=== PATIENT | female | born 1980 | race Caucasian/White ===

== ENCOUNTER 2021-01-31 08:52 | Emergency (ER) | payer OTHER, SELFPAY ==
[2021-01-31 09:06] VITALS: BP 111/79; PULSE 71; RESP 16; TEMP 36.8; O2SAT 96; BMI 29.1
[2021-01-31 09:22] VITALS: BP 123/78; PULSE 89; RESP 16; O2SAT 97
--- NOTE | 2021-01-31 09:28 | ED_ITS ---
HPI - Female Genitourinary General: Chief complaint: Urogenital-Female Stated complaint: Kindey stone complications Time Seen by Provider: 01/31/21 08:53 History of Present Illness: HPI Narrative: 40-year-old female presents emergency room complaint area left flank pain. She had a for the last 2 days. She is previously had kidney stones and had similar pain. Shortly after arrival here she gave a urine sample and passed the stone in her urine. When I came in to see the patient her symptoms were completely resolved and she was feeling much better. MD elicited complaint: flank pain Onset (ago): day(s) Severity: severe Quality of pain: sharp Consistency: now resolved Vaginal discharge: none Vaginal bleeding: none Urinary symptoms: Flank Pain Exacerbating factors: none Relieving factors: none Associated symptoms: Deny abdominal pain, short of breath, fevers/chills, headache(s), nausea, rash, seizures, syncope, vaginal bleeding, vaginal discharge or weakness Treatment prior to arrival: none Date of Last Menstrual Period: 01/11/21 Review of Systems Const: Denies: fever(s), chills, body aches, change in appetite, fatigue or malaise ENMT: Denies: throat pain, ear or mastoid pain, nasal discharge or nasal congestion Card: Denies: syncope Resp: Denies: dyspnea, productive cough or non-productive cough GI: Denies: abdominal pain or nausea : Denies: vaginal discharge Skin/Breast: Denies: rash or pruritus Neuro: Denies: headache(s) COUNT INCLUDES THE [facility] ED PFSH: Medical History (Updated 01/31/21 @ 11:41 by Hossein Goodwin DO) Nephrolithiasis Female Reproductive History: Date of last menstrual period: 01/11/21 Physical Exam Const: COMMON NORMALS: no acute distress GENERAL APPEARANCE: cooperative and comfortable ORIENTATION/CONSCIOUSNESS: Yes awake, Yes oriented to person, Yes oriented to place and Yes oriented to time HENMT: COMMON NORMALS: normocephalic, atraumatic and hearing grossly normal bilaterally HEAD & SCALP: normocephalic and atraumatic Neck/C-Spine: COMMON NORMALS: no JVD Lymph: LYMPHATIC: no lymphadenopathy noted and no lymphedema noted Resp: COMMON NORMALS: normal respiratory effort, No retractions, No use of accessory muscles and clear to auscultation bilaterally AUSCULTATION: clear to auscultation bilaterally Cardio: COMMON NORMALS: no JVD, regular rate, regular rhythm and No murmurs present (Cardio) RATE: regular rate RHYTHM: regular rhythm GI: COMMON NORMALS: Soft to palpation and No hepatosplenomegaly present AUSCULTATION: Yes normoactive bowel sounds PALPATION: Yes Soft to palpation, No Tenderness to palpation present (GI), No Guarding due to palpation present (GI) and Yes No hepatosplenomegaly present : SPECULUM EXAM - VAGINA: No vaginal bleeding OB/EXTERNAL & SPECULUM: No vaginal bleeding Extremity: COMMON NORMALS: normal to inspection, capillary refill normal, no clubbing, cyanosis or edema, no calf tenderness and no pedal edema Neuro: SENSORIUM/ORIENTATION: Yes oriented to person, Yes oriented to place and Yes oriented to time Skin: COMMON NORMALS: no rashes or lesions noted GENERAL SKIN EXAM: no rashes or lesions noted Course Vital Signs: Vital signs: Vital Signs Temperature 98.3 F 01/31/21 09:06 Pulse Rate 70 01/31/21 10:47 Respiratory Rate 14 01/31/21 10:47 Blood Pressure 107/70 01/31/21 10:47 Pulse Oximetry 99 01/31/21 10:47 MDM - Female MDM Narrative: Medical decision making narrative: Patient is passed stone was sent for analysis no sign of infection renal function CBC is good will discharge home follow-up with urology. Lab Data: Labs: Lab Results 01/31/21 01/31/21 01/31/21 Range/Units 09:15 09:23 09:23 WBC 15.8 H (4.0-10.0) 10^3/ uL RBC 4.16 (4.1-5.3) 10^6/u L Hgb 13.0 (11.5-15.3) g/dL Hct 38.7 (37.0-47.0) % MCV 93.0 (81-99) fl MCH 31.3 (28.0-34.0) pg MCHC 33.6 (30.0-36.0) g/dL RDW 13.2 (12.1-15.1) % Plt Count 391 (130-400) 10^3/c mm MPV 10.8 H (7.4-10.4) fL Neut % (Auto) 91.9 % Lymph % (Auto) 5.9 % Stearns % (Auto) 1.7 % Eos % (Auto) 0.0 % Baso % (Auto) 0.2 % Neut # (Auto) 14.52 H (1.8-7.7) 10^3/u L Lymph # (Auto) 0.9 (0.8-4.8) 10^3/u L Stearns # (Auto) 0.3 (0.2-0.9) 10^3/u L Eos # (Auto) 0.0 (0.0-0.8) 10^3/u L Baso # (Auto) 0.0 (0.0-0.1) 10^3/u L Nucleated RBC % (a uto) 0 % Nucleated RBCs # 0.0 /100WBC Sodium 141 (136-145) mmol/L Potassium 4.1 (3.5-5.1) mmol/L Chloride 107 (98-107) mmol/L Carbon Dioxide 21 L (22-29) mmol/L Anion Gap 17.1 (5-19) BUN 11 (6-20) mg/dL Creatinine 0.7 (0.5-0.9) mg/dL GFR Calculation 93.2 (90-130) mL/min Glucose 123 H (65-115) mg/dL Calculated Osmolal ity 293 (285-295) mOsm/k g Calcium 9.0 (8.5-10.5) mg/dL Urine Color Dark yellow (Yellow) Urine Appearance Clear (CLEAR) Urine pH 7 (5-7) Ur Specific Gravit y 1.015 (1.005-1.030) Urine Protein Neg (Negative) Urine Glucose (UA) Norm (Normal) Urine Ketones 2+ H (Negative) Urine Blood 3+ H (Negative) Urine Nitrate Negative (Negative) Urine Bilirubin Neg (Negative) Urine Urobilinogen 1 H (Negative) mg/dL Ur Leukocyte Sushma ase Negative (Negative) Urine RBC >100 H (0-2) /hpf Urine WBC 10-15 H (0-5) /hpf Ur Squamous Epith Cells 0-4 H (0-5) /hpf Amorphous Sediment Not Reportable Urine Bacteria 1+ H (NONE) /hpf Discharge Plan Discharge Patient Disposition: Home Clinical Impression: Nephrolithiasis Condition: Stable Prescriptions: No Action Zofran 4 mg Tablet 4 mg PO Q6H PRN (Reason: Nausea And Vomiting) RF: 0 Junel FE 07/07 (28) 1 mg-20 mcg (21)/75 mg (7) Tablet 1 tab PO DAILY RF: 0 Tylenol Extra Strength 500 mg Tablet 1,000 mg PO PRN PRN (Reason: Pain) RF: 0 Flomax 0.4 mg Capsule 0.4 mg PO DAILY PRN (Reason: old rx pt had from [place]) RF: 0 Stout 1 tab PO PRN PRN (Reason: old rx pt had from [place] pt states unsure mg) RF: 0 Discharge Orders: Discharge ED (Routine); Ordered 01/31/21 Ordered By: Hossein Goodwin Discharge Diet: Usual diet Discharge Activity: Resume usual activity Activity Restrictions/Additional Instructions: Case management will make arrangements for follow-up with urology. Coding Level of Care Code ED [employer] Service Technician for Roger Fwd Exam Comprehensive
[2021-01-31 09:31] LABS: Basophils % 0.2 %; Hematocrit 38.7 % (37.0-47.0); Lymphocytes # 0.9 10^3/uL (0.8-4.8); Lymphocytes % 5.9 %; Mean Corpuscular HGB Conc 33.6 g/dL (30.0-36.0); Mean Corpuscular Hemoglobin 31.3 pg (28.0-34.0); Mean Platelet Volume 10.8 fL (7.4-10.4); Monocytes # 0.3 10^3/uL (0.2-0.9); Monocytes % 1.7 %; Neutrophils # 14.52 10^3/uL (1.8-7.7); Neutrophils % 91.9 %; Nucleated Red Blood Cells % 0 %; Platelet Count 391 10^3/cmm (130-400); Red Blood Count 4.16 10^6/uL (4.1-5.3); Red Cell Distribution Width 13.2 % (12.1-15.1); White Blood Count 15.8 10^3/uL (4.0-10.0)
--- NOTE | 2021-01-31 09:40 | PC.PHAR ---
pt states she takes care of her own medications-pt states she has been taking flomax,zofran and norco from a old rx she had from [place]-pt states she is unsure of the mg of norco-called [facility] in [place] [phone] and [phone] they both states pt didnt fill the medication there and couldnt do a host lookup
[2021-01-31 09:53] LABS: Anion Gap 17.1 (5-19); Blood Urea Nitrogen 11 mg/dL (6-20); Carbon Dioxide 21 mmol/L (22-29); Chloride 107 mmol/L (98-107); Glomerular Filtration Rate 93.2 mL/min (90-130); Glucose 123 mg/dL (65-115); Osmolality Calculated 293 mOsm/kg (285-295); Potassium 4.1 mmol/L (3.5-5.1); Sodium 141 mmol/L (136-145)
[2021-01-31 09:58] LABS: Urine Appearance Clear (CLEAR); Urine Color Dark Yellow (Yellow)
[2021-01-31 09:59] LABS: Add Urine Culture? Yes; Add Urine Microscopic? YES; Bacteria Urine 1+ /hpf; Bilirubin Urine Neg (Negative); Blood Urine 3+ (Negative); Glucose Urine UA Norm (Normal); Ketones Urine 2+ (Negative); Leukocyte Esterase Urine Negative (Negative); Nitrate Urine Negative (Negative); Protein Urine Neg (Negative); RBC Urine >100 /hpf (0-2); Specific Gravity, Urine 1.015 (1.005-1.030); Squamous Epithelial Cell Urine 0-4 /hpf (0-5); Urobilinogen Urine 1 mg/dL (Negative); pH Urine 7 (5-7)
[2021-01-31 10:47] VITALS: BP 107/70; PULSE 70; RESP 14; O2SAT 99
--- NOTE | 2021-01-31 11:56 | DCPLANNER ---
business excellence manager had message to schedule a follow up appointment for patient with Dr. Valiente. business excellence manager called the office of Dr. Valiente, spoke with Farzana, gave clinic patients information. business excellence manager was told that patients information would be printed and reviewed. Clinic will call patient with appointment information.
--- NOTE | 2021-02-01 14:21 | DCPLANNER ---
Addendum entered by Mary Jane Watts 07/06/21 18:14: Patient had a follow up appointment scheduled with Dr. Valiente - appointment was cancelled. Original Note: Patient has a follow up appointment scheduled for Sunday, March 16, 2021 at 4:[address] Valiente. Clinic will call patient with appointment information.
[2021-02-06 14:12] LABS: Stone Source RENAL STONE
== END 2021-01-31 10:28 | disposition home or self-care (01) ==
PROVIDERS: Emergency Provider Family Medicine
DX: N20.0 Calculus of kidney (principal)
CPT/HCPCS: 80048; 81001; 82365; 85025; 87086; 88300; 99283

== ENCOUNTER 2022-08-28 07:37 | Outpatient (CLI) | payer OTHER, SELFPAY ==
--- NOTE | 2022-08-28 07:49 | MM_ITS ---
WS: [id number] SCREENING DIGITAL BREAST TOMOSYNTHESIS MAMMOGRAM WITH CAD HISTORY: Z12.39 - Encounter for other screening for malignant neop... COMPARISON: None available. Bilateral CC and MLO with tomosynthesis and synthetic mammography submitted. Computer aided detection analyzed. Breast composition: The breasts are heterogeneously dense, which may obscure small masses. Dense part ially obscured asymmetry measuring 2.1 cm seen best along the inferior RIGHT breast on the MLO exam. Possibly a corresponding abnormality noted on the CC projection. LEFT breast is negative. MM/[place] [id number] IMPRESSION: BI-RADS: 0-Incomplete: Need additional imaging evaluation FOLLOW UP: Need Additional Imaging RIGHT breast: Spot compression views (CC and MLO). True ML. Ultrasound to follo w if abnormality persists.
== END 2022-08-28 07:38 | disposition home or self-care (01) ==
LOC: RAD 07:41
PROVIDERS: PCP Family Medicine; Visit Provider Nurse Practitioner Women's Health
DX: Z12.31 Encounter for screening mammogram for malignant neoplasm of breast (principal)
CPT/HCPCS: 77063; 77067

== ENCOUNTER 2022-09-26 09:30 | Outpatient (CLI) | payer OTHER, SELFPAY ==
--- NOTE | 2022-09-26 09:41 | MM_ITS ---
WS: [id number] ADDITIONAL VIEWS RIGHT MAMMOGRAM WITH DIGITAL BREAST TOMOSYNTHESIS. RIGHT BREAST ULTRASOUND HISTORY: abnormal mammogram COMPARISON: 08/28/2022 RIGHT MAMMOGRAM: Spot compression views and true ML with digital breast tomosynthesis and SM. Dense fibroglandular breast tissue. Partially obscured lobulated mass along the inferior mid RIGHT br east measures 2.2 x 1.8 cm. Best seen on the lateral projections. RIGHT BREAST ULTRASOUND 2-D and color Doppler imaging submitted. There is no corresponding ultrasound finding within the RIGHT breast. Ultrasound is performed of the lower half of the breast both medially and laterally. There is very dense fibroglandular tissue. Mild ly prominent dilated ducts. MM/[place] [id number] IMPRESSION: BI-RADS: 3-Probably Benign FOLLOW UP: 6 Month Follow-up 1. Recommend diagnostic mammogram follow-up in 6 months RIGHT breast and possi ble ultrasound. 2. Focal asymmetry seen only on the RIGHT MLO projection. This is not identifi ed in either additional mammographic projections or by ultrasound. Therefore I suspect this is probably superimposed very dense fibroglandular tissue. With no prior studies for comparison recommend 6 month follow-up.
--- NOTE | 2022-09-26 10:15 | US_ITS ---
WS: [id number] ADDITIONAL VIEWS RIGHT MAMMOGRAM WITH DIGITAL BREAST TOMOSYNTHESIS. RIGHT BREAST ULTRASOUND HISTORY: abnormal mammogram COMPARISON: 08/28/2022 RIGHT MAMMOGRAM: Spot compression views and true ML with digital breast tomosynthesis and SM. Dense fibroglandular breast tissue. Partially obscured lobulated mass along the inferior mid RIGHT br east measures 2.2 x 1.8 cm. Best seen on the lateral projections. RIGHT BREAST ULTRASOUND 2-D and color Doppler imaging submitted. There is no corresponding ultrasound finding within the RIGHT breast. Ultrasound is performed of the lower half of the breast both medially and laterally. There is very dense fibroglandular tissue. Mild ly prominent dilated ducts. US/US breast RT limited* [id number] IMPRESSION: BI-RADS: 3-Probably Benign FOLLOW UP: 6 Month Follow-up 1. Recommend diagnostic mammogram follow-up in 6 months RIGHT breast and possi ble ultrasound. 2. Focal asymmetry seen only on the RIGHT MLO projection. This is not identifi ed in either additional mammographic projections or by ultrasound. Therefore I suspect this is probably superimposed very dense fibroglandular tissue. With no prior studies for comparison recommend 6 month follow-up.
== END 2022-09-26 09:31 | disposition home or self-care (01) ==
PROVIDERS: PCP Family Medicine; Visit Provider Family Medicine
DX: R92.8 Other abnormal and inconclusive findings on diagnostic imaging of breast (principal)
CPT/HCPCS: 76642; 77061; G0279

== ENCOUNTER → 2023-07-18 10:30 | Outpatient (BNVA) | payer OTHER, SELFPAY | PROVIDERS: PCP Family Medicine; Visit Provider Nurse Practitioner Women's Health | DX: Z12.4 Encounter for screening for malignant neoplasm of cervix (principal) | CPT/HCPCS: 87624 ==

== ENCOUNTER 2023-09-03 08:42 | Outpatient (CLI) | payer OTHER, SELFPAY ==
--- NOTE | 2023-09-03 08:47 | MM_ITS ---
WS: [email or web address] DIAGNOSTIC BILATERAL DIGITAL BREAST TOMOSYNTHESIS MAMMOGRAPHY WITH CAD RIGHT breast ultrasound, limited HISTORY: R92.8 - Other abnormal and inconclusive findings on diagn... COMPARISON: 09/26/2022, 08/28/2022, breast ultrasound 09/26/2022 TECHNIQUE: Bilateral craniocaudad, mediolateral oblique, and mediolateral views are submitted with to mosynthesis and SM. Spot compression RIGHT CC and MLO. Computer aided detection utilized. Breast composition: The breasts are heterogeneously dense, which may obscure small masses. Asymmetry in the central RIGHT breast appears significantly improved and less concerning. There is still increa sed density and asymmetry but really only seen on the CC projection posterior to the nipple. No addit ional abnormalities. RIGHT breast ultrasound, limited. There are a few mildly dilated ducts with no abnormalities. There is a small complex cyst at 12:00 me asuring 6 x 6 x 7 mm. This may correspond to the abnormality in the RIGHT breast just posterior to th e nipple. This is at 12:00, 2 cm from the nipple. No solid mass or shadowing. IMPRESSION: MM/[place] [id number] BI-RADS: 2-Benign FOLLOW UP: 1 Year Follow-up Return to annual screening mammography. No solid mass or distortion identified.
--- NOTE | 2023-09-03 09:30 | US_ITS ---
WS: [email or web address] DIAGNOSTIC BILATERAL DIGITAL BREAST TOMOSYNTHESIS MAMMOGRAPHY WITH CAD RIGHT breast ultrasound, limited HISTORY: R92.8 - Other abnormal and inconclusive findings on diagn... COMPARISON: 09/26/2022, 08/28/2022, breast ultrasound 09/26/2022 TECHNIQUE: Bilateral craniocaudad, mediolateral oblique, and mediolateral views are submitted with to mosynthesis and SM. Spot compression RIGHT CC and MLO. Computer aided detection utilized. Breast composition: The breasts are heterogeneously dense, which may obscure small masses. Asymmetry in the central RIGHT breast appears significantly improved and less concerning. There is still increa sed density and asymmetry but really only seen on the CC projection posterior to the nipple. No addit ional abnormalities. RIGHT breast ultrasound, limited. There are a few mildly dilated ducts with no abnormalities. There is a small complex cyst at 12:00 me asuring 6 x 6 x 7 mm. This may correspond to the abnormality in the RIGHT breast just posterior to th e nipple. This is at 12:00, 2 cm from the nipple. No solid mass or shadowing. IMPRESSION: US/US breast RT limited* [id number] BI-RADS: 2-Benign FOLLOW UP: 1 Year Follow-up Return to annual screening mammography. No solid mass or distortion identified.
== END 2023-09-03 08:43 | disposition home or self-care (01) ==
LOC: RAD 08:43
PROVIDERS: PCP Family Medicine; Visit Provider Nurse Practitioner Women's Health
DX: R92.8 Other abnormal and inconclusive findings on diagnostic imaging of breast (principal); R92.333 Mammographic heterogeneous density, bilateral breasts; N64.89 Other specified disorders of breast; N60.01 Solitary cyst of right breast
CPT/HCPCS: 76642; 77062; G0279

== ENCOUNTER 2024-03-25 15:11 | Emergency (ER) | payer OTHER, SELFPAY ==
[2024-03-25 15:24] VITALS: BP 135/82; PULSE 74; RESP 16; TEMP 36.6; O2SAT 100; BMI 32.4
--- NOTE | 2024-03-25 16:09 | CTR_ITS ---
PROCEDURE INFORMATION: Exam: CT Abdomen And Pelvis Without Contrast Exam date and time: 03/25/2024 7:19 PM Age: 43 years old Clinical indication: Abdominal pain; Acute; Additional info: Pain/history kidney stones TECHNIQUE: Imaging protocol: Computed tomography of the abdomen and pelvis without contrast. Radiation optimization: All CT scans at this facility use at least one of these dose optimization techniques: automated exposure control; mA and/or kV adjustment per patient size (includes targeted exams where dose is matched to clinical indication); or iterative reconstruction. COMPARISON: No relevant prior studies available. RADIATION DOSE METRICS: Total DLP (mGy-cm): 1749 FINDINGS: Liver: Hepatic steatosis. Gallbladder and biliary ducts: Gallbladder is prominent, ultrasound could further evaluate this. Pancreas: Normal. No ductal dilation. Spleen: Normal. No splenomegaly. Adrenal glands: Normal. No mass. Kidneys and ureters: Left distal ureter 6.7 mm calculus with moderate to severe hydronephrosis and hydroureter with perinephric edema, please correlate for pyelonephritis. Left kidney punctate nonobstructing calyceal stone. Stomach and bowel: Unremarkable. No obstruction. No mucosal thickening. Appendix: No evidence of appendicitis. Intraperitoneal space: Unremarkable. No free air. No significant fluid collection. Vasculature: Unremarkable. No abdominal aortic aneurysm. Lymph nodes: Unremarkable. No enlarged lymph nodes. Urinary bladder: Unremarkable as visualized. Reproductive: Right ovary 23 mm cyst, likely follicular. Bones/joints: Unremarkable. No acute fracture. Soft tissues: Unremarkable. CT/CT kidney stone [id number] IMPRESSION: 1. Left distal ureter 6.7 mm calculus with moderate to severe hydronephrosis and hydroureter with perinephric edema, please correlate for pyelonephritis. 2. Right ovary 23 mm cyst, likely follicular. 3. Hepatic steatosis. 4. Gallbladder is prominent, ultrasound could further evaluate this. 5. Left kidney punctate nonobstructing calyceal stone.
[2024-03-25 16:25] LABS: Basophils % 0.2 %; Eosinophils % 0.2 %; Hematocrit 43.1 % (36-47); Lymphocytes # 1.1 10^3/uL (0.8-4.8); Lymphocytes % 8.7 %; Mean Corpuscular HGB Conc 32.9 g/dL (30-55); Mean Corpuscular Hemoglobin 31.8 pg (27-33); Mean Corpuscular Volume 96.6 fl (85-98); Monocytes # 0.5 10^3/uL (0.2-0.9); Monocytes % 3.6 %; Neutrophils % 87.1 %; Nucleated Red Blood Cells % 0 %; Platelet Count 397 10^3/cmm (157-399); Red Blood Count 4.46 10^6/uL (3.85-5.65); Red Cell Distribution Width 13.3 % (12.1-15.1); White Blood Count 12.74 10^3/uL (3.29-11.43)
[2024-03-25 16:43] LABS: Alanine Aminotransferase 8 U/L (0-33); Alkaline Phosphatase 54 U/L (35-105); Anion Gap 17.8 (5-19); Aspartate Amino Transferase 11 U/L (0-32); Blood Urea Nitrogen 9 mg/dL (6-20); Calcium 8.7 mg/dL (8.5-10.5); Carbon Dioxide 20 mmol/L (22-29); Chloride 102 mmol/L (98-107); Creatinine Clr Calc Pharmacy 100.6258; Globulin 3.2 g/dL (1.3-4.6); Glomerular Filtration Rate 78.7 mL/min (90-130); Glucose 101 mg/dL (65-115); Lipase 28 U/L (13-60); Osmolality Calculated 281 mOsm/kg (285-295); Potassium 3.8 mmol/L (3.5-5.1); Sodium 136 mmol/L (136-145); Total Bilirubin 0.4 mg/dL (0.15-1.2); Total Protein 7.2 g/dL (6.6-8.7)
[2024-03-25 16:46] LABS: HCG, Serum Qual Negative (Negative)
[2024-03-25 17:59] VITALS: BP 146/107; PULSE 75; RESP 16; O2SAT 100
--- NOTE | 2024-03-25 20:18 | ED_ITS ---
HPI - Abdominal Pain 2 General: Chief Complaint: Abdominal Pain Stated Complaint: vomitting, sharp pain in side, urinary Time Seen by Provider: 03/25/24 20:00 Source: patient Mode of arrival: ambulatory Limitations: no limitations History of Present Illness: Patient is a 43-year-old female presenting to the emergency department complaining of left flank pain beginning Sunday. She reports history of kidney stones, states this feels identical. In the past she has always passed them on her own, though pain has never persisted this long. She did take an old hydrocodone at home that did not help. At this time she is reporting 9/10 pain that is currently radiating down the left lower quadrant, states the pain initially began to her left back. She is also reporting blood in her urine as well as hesitancy with urination. She denied any fever, chills, vomiting, or other symptoms other than some nausea. MD elicited complaint: abdominal pain and flank pain Pertinent past history: kidney stones Onset (ago): day(s) Pain Consistency: constant Location: LLQ and L flank Severity: severe Pain scale (0-10): 9 Quality: stabbing Exacerbating factors: movement Relieving factors: nothing Associated Symptoms: Reports hematuria and nausea; Denies bloating, change in stool character, chills, constipation, diarrhea, dysuria, fever(s), hematochezia and vomiting Treatments prior to arrival: prescription analgesics Related Data Previous Rx's Medication Instructions Recorded norethindrone 1.5 mg-ethinyl 1 tab PO DAILY #84 tabs 07/18/23 estradiol 30 mcg(21)/iron 75 mg(7) tablet (Junel FE .530 (28)) tamsulosin 0.4 mg capsule 0.4 mg PO DAILY #90 caps 03/24/24 cefdinir 300 mg capsule 300 mg PO BID 10 days #20 caps 03/25/24 hydrocodone 7.5 mg-acetaminophen 1 tab PO Q8H PRN pain #15 tabs 03/25/24 325 mg tablet Allergies Allergy/AdvReac Type Severity Reaction Status Date / Time codeine Allergy ALGY-Rash Verified 03/25/24 15:31 Review of Systems 2 General: Reports: 10 or more systems reviewed and unremarkable except in HPI and below Const: Denies: fever(s), chills, change in appetite, change in weight or diaphoresis ENMT: Denies: throat pain or hoarseness Card: Denies: chest pain, palpitations or lightheadedness Resp: Denies: dyspnea, productive cough or wheezing GI: Reports: abdominal pain and nausea; Denies: vomiting, diarrhea, constipation, bloating, change in stool character or hematochezia : Reports: flank pain, difficulty voiding, urinary hesitancy and hematuria; Denies: dysuria, urinary frequency or urinary urgency Musc: Reports: back pain; Denies: neck pain Skin/Breast: Denies: rash or new lesions Neuro: Denies: headache(s) or dizziness PFSH ED 2 PFSH: Medical History Nephrolithiasis No pertinent past medical history neghx: htn,dm,thyroid,dvt/pe PCP: None Surgical History Hx of lumpectomy (~2003) R breast-- benign fatty tissue History of placement of ear tubes as a child Family History Grandmother Breast cancer Maternal--dx age 50's Grandfather Colon cancer Paternal dx age early 70's Family/Other Diabetes Maternal side in general Heart disease Maternal and paternal side in general Father Hypertension Hypercholesteremia Mother Thyroid disease Denies family history of Ovarian cancer Uterine cancer Stroke Social History Smoking and tobacco/nicotine status: never used tobacco/nicotine Alcohol intake: never Adopted: No Caregiver/support person: No Lives independently: Yes Housing: House Marital status: Number of children: 2 Physical Exam 2 Const: COMMON NORMALS: average body habitus, patient oriented x3, no limitations, healthy appearing, alert and well nourished GENERAL APPEARANCE: cooperative ORIENTATION/CONSCIOUSNESS: Yes awake OTHER: Appears uncomfortable HENMT: COMMON NORMALS: normocephalic, atraumatic, hearing grossly normal bilaterally, external ears normal, Normal external nose present, Normal nasal mucous membranes and turbinates present and moist oral mucous membranes HEAD & SCALP: normocephalic and atraumatic NOSE: Normal external nose present and Normal nasal mucous membranes and turbinates present EXTERNAL EAR: Yes external ears normal Eye: COMMON NORMALS: Equal, round and reactive pupils present, EOMs intact bilaterally, conjunctivae normal and normal visual gutiérrez by confrontation C ONJUNCTIVA: Yes conjunctivae normal PUPIL: Yes Equal, round and reactive pupils present Neck/C-Spine: COMMON NORMALS: full ROM, supple, no meningeal signs and no JVD Resp: COMMON NORMALS: normal respiratory effort, No retractions, No use of accessory muscles and clear to auscultation bilaterally AUSCULTATION: clear to auscultation bilaterally, no crackles, no rales, no rhonchi and no wheezes Cardio: COMMON NORMALS: no JVD, regular rate, regular rhythm, S1 normal heart sound present, S2 normal heart sound present, No gallops present (Cardio), No clicks present (Cardio), No murmurs present (Cardio), No rub (Cardio) and Peripheral pulses 2+ throughout RATE: regular rate RHYTHM: regular rhythm HEART SOUNDS: S1 normal heart sound present and S2 normal heart sound present PERIPHERAL PULSES: Peripheral pulses 2+ throughout GI: COMMON NORMALS: Normal to inspection, nondistended, normoactive bowel sounds present, Soft to palpation, No hepatosplenomegaly present and no masses AUSCULTATION: Yes normoactive bowel sounds PALPATION: Yes Soft to palpation, Yes Tenderness to palpation present (GI) (Tenderness to light palpation of left lower quadrant), No Guarding due to palpation present (GI), No Rigid due to palpation and Yes No hepatosplenomegaly present RECTAL EXAM: deferred : COMMON NORMALS: Yes no CVA tenderness BLADDER/KIDNEY EXAM: Yes no CVA tenderness Back/Pelvis: COMMON NORMALS: no CVA tenderness Extremity: COMMON NORMALS: normal to inspection and full ROM Neuro: COMMON NORMALS: patient oriented x3, moves all extremities, no focal motor deficits and no sensory deficits noted SENSORIUM/ORIENTATION: Yes alert MENINGEAL SIGNS: Yes no meningeal signs Psych: COMMON NORMALS: mental status grossly normal, cooperative and speech normal SPEECH: Yes normal speech Skin: COMMON NORMALS: no rashes or lesions noted GENERAL SKIN EXAM: no rashes or lesions noted Course 2 Vital Signs: Vital signs: Vital Signs Temperature 97.9 F 03/25/24 15:24 Pulse Rate 75 03/25/24 17:59 Respiratory Rate 16 03/25/24 17:59 Blood Pressure 146/107 03/25/24 17:59 Pulse Oximetry 100 03/25/24 17:59 Oxygen Delivery Me thod Room Air 03/25/24 17:59 MDM - Abdominal Pain Medical Decision Making This patient presented with left flank pain radiating to the left abdomen, history of kidney stones and stated that this feels exactly the same. Mild bump in her white count, and her urinalysis did show evidence of a minor urinary tract infection. Multiple red blood cells on her urinalysis, indicative of ureteral epithelial injury potentially. Her CT did confirm that there was a distal ureter stone measuring 6.7 mm, nonobstructive but there was a good amount of fluid around this area. She did not have any CVA tenderness, and with lack of significant nausea and vomiting I do not suspect pyelonephritis at this time. She does have Flomax at home that she has been taking, and it does appear that her stone is soon going to pass. For the minor infection we will treat with antibiotics, and in addition we will refer her to urology for prompt urological follow-up. Pain medication sent home with her and strict return precautions were given such that if she starts beginning to have nausea and vomiting, high fevers, or worsening of condition that she will return for reevaluation. Patient agrees at this time and does report relief after receiving Zofran and Toradol through an IV along with fluids. This case was discussed with Dr. Jimenez who agrees with disposition of the patient. Lab Data 03/25/24 16:16 03/25/24 16:16 Labs/Radiology: Radiology Impressions Abdomen/Pelvis CT 03/25/24 16:09 IMPRESSION: 1. Left distal ureter 6.7 mm calculus with moderate to severe hydronephrosis and hydroureter with perinephric edema, please correlate for pyelonephritis. 2. Right ovary 23 mm cyst, likely follicular. 3. Hepatic steatosis. 4. Gallbladder is prominent, ultrasound could further evaluate this. 5. Left kidney punctate nonobstructing calyceal stone. Laboratory Results WBC 12.74 10^3/uL (3.29-11.43) H 03/25/24 16:16 RBC 4.46 10^6/uL (3.85-5.65) 03/25/24 16:16 Hgb 14.20 g/dL (11.27-16.99) 03/25/24 16:16 Hct 43.1 % (36-47) 03/25/24 16:16 MCV 96.6 fl (85-98) 03/25/24 16:16 MCH 31.8 pg (27-33) 03/25/24 16:16 MCHC 32.9 g/dL (30-55) 03/25/24 16:16 RDW 13.3 % (12.1-15.1) 03/25/24 16:16 Plt Count 397 10^3/cmm (157-399) 03/25/24 16:16 MPV 10.0 fL (7.4-10.4) 03/25/24 16:16 Neut % (Auto) 87.1 % 03/25/24 16:16 Lymph % (Auto) 8.7 % 03/25/24 16:16 [place] % (Auto) 3.6 % 03/25/24 16:16 Eos % (Auto) 0.2 % 03/25/24 16:16 Baso % (Auto) 0.2 % 03/25/24 16:16 Neut # (Auto) 11.10 10^3/uL (1.8-7.7) H 03/25/24 16:16 Lymph # (Auto) 1.1 10^3/uL (0.8-4.8) 03/25/24 16:16 [place] # (Auto) 0.5 10^3/uL (0.2-0.9) 03/25/24 16:16 Eos # (Auto) 0.0 10^3/uL (0.0-0.8) 03/25/24 16:16 Baso # (Auto) 0.0 10^3/uL (0.0-0.1) 03/25/24 16:16 Nucleated RBC % (auto) 0 % 03/25/24 16:16 Nucleated RBCs # 0.0 /100WBC 03/25/24 16:16 Sodium 136 mmol/L (136-145) 03/25/24 16:16 Potassium 3.8 mmol/L (3.5-5.1) 03/25/24 16:16 Chloride 102 mmol/L (98-107) 03/25/24 16:16 Carbon Dioxide 20 mmol/L (22-29) L 03/25/24 16:16 Anion Gap 17.8 (5-19) 03/25/24 16:16 BUN 9 mg/dL (6-20) 03/25/24 16:16 Creatinine 0.8 mg/dL (0.5-0.9) 03/25/24 16:16 GFR Calculation 78.7 mL/min (90-130) L 03/25/24 16:16 Glucose 101 mg/dL (65-115) 03/25/24 16:16 Calculated Osmolality 281 mOsm/kg (285-295) L 03/25/24 16:16 Calcium 8.7 mg/dL (8.5-10.5) 03/25/24 16:16 Total Bilirubin 0.4 mg/dL (0.15-1.2) 03/25/24 16:16 AST 11 U/L (0-32) 03/25/24 16:16 ALT 8 U/L (0-33) 03/25/24 16:16 Alkaline Phosphatase 54 U/L (35-105) 03/25/24 16:16 Total Protein 7.2 g/dL (6.6-8.7) 03/25/24 16:16 Albumin 4.0 g/dL (3.5-5.2) 03/25/24 16:16 Globulin 3.2 g/dL (1.3-4.6) 03/25/24 16:16 Lipase 28 U/L (13-60) 03/25/24 16:16 HCG, Qual Negative (Negative) 03/25/24 16:16 Urine Color Dark yellow (Yellow) 03/25/24 21:05 Urine Appearance Cloudy (CLEAR) A 03/25/24 21:05 Urine pH 5.5 (5-7) 03/25/24 21:05 Ur Specific [place] 1.028 (1.005-1.030) 03/25/24 21:05 Urine Protein 1+ (Negative) A 03/25/24 21:05 Urine Glucose (UA) Negative (Normal) 03/25/24 21:05 Urine Ketones 4+ (Negative) 03/25/24 21:05 Urine Blood 3+ (Negative) A 03/25/24 21:05 Urine Nitrate Negative (Negative) 03/25/24 21: Urine Bilirubin 1+ (Negative) H 03/25/24 21:05 Urine Urobilinogen 1.0 mg/dL (Negative) 03/25/24 21:05 Ur Leukocyte Esterase 1+ (Negative) A 03/25/24 21:05 Urine RBC >100 /hpf (0-2) H 03/25/24 21:05 Urine WBC 11-20 /hpf (0-5) H 03/25/24 21:05 Ur Squamous Epith Cells 6-10 /hpf (0-5) 03/25/24 21:05 Amorphous Sediment Not Reportable 03/25/24 21:05 Urine Bacteria Trace /hpf (NONE) 03/25/24 21:05 Hyaline Casts 1.21 /lpf 03/25/24 21:05 All radiology interpretation(s) finalized by discharge Discharge Plan Discharge Patient Disposition: Home Clinical Impression: Ureterolithiasis, Cystitis Condition: Stable Prescriptions: New hydrocodone-acetaminophen 7.5-325 mg tablet 1 tab PO Q8H PRN (Reason: pain) Qty: 15 0RF cefdinir 300 mg capsule 300 mg PO BID 10 Days Qty: 20 0RF No Action norethindrone-e.estradiol-iron [Junel FE 1.5/30 (28)] 1.5 mg-30 mcg (21)/75 mg (7) tablet 1 tab PO DAILY Qty: 84 3RF tamsulosin 0.4 mg capsule 0.4 mg PO DAILY Qty: 90 1RF Discharge Orders: Discharge ED (Routine); Ordered 03/25/24 Ordered By: Lux Chi Referrals: Amish Ferris DO [Primary Care Provider] - Discharge Diet: As Directed Discharge Activity: Increase activity as tolerated Patient Instructions: Urinary Tract Infection in Women (ED), Ureteral Stones (ED) Activity Restrictions/Additional Instructions: Take antibiotics as prescribed. Pain medications as prescribed. Continue drinking plenty of fluids. Take Flomax that you have at home. Follow-up with urology as discussed. Please return with any worsening nausea and vomiting or other systemic signs of illness. Coding Level of Care Code ED [employer] for Roger Fuchs
[2024-03-25] MEDS: ketorolac 60 mg/2 mL INJ 30 MG IVP (21:00)
[2024-03-25] MEDS: ondansetron 2 mg/ML SDV 2 mL 4 MG IVP (21:01)
[2024-03-25] MEDS: sodium chloride 0.9% 1,000 ML 999 ML IV (21:01)
[2024-03-25 21:13] LABS: Bilirubin Urine 1+ (Negative); Blood Urine 3+ (Negative); Glucose Urine UA Negative (Normal); Ketones Urine 4+ (Negative); Leukocyte Esterase Urine 1+ (Negative); Nitrate Urine Negative (Negative); Protein Urine 1+ (Negative); Specific Gravity, Urine 1.028 (1.005-1.030); Urine Appearance Cloudy (CLEAR); pH Urine 5.5 (5-7)
[2024-03-25 21:17] LABS: Add Urine Microscopic? YES; Bacteria Urine Trace /hpf; Hyaline Casts Urine 1.21 /lpf; RBC Urine >100 /hpf (0-2)
[2024-03-25 21:19] LABS: Urine Color Dark Yellow (Yellow)
[2024-03-25 21:20] LABS: Add Urine Culture? Yes
[2024-03-25 21:46] VITALS: BP 141/81; PULSE 75; RESP 18; O2SAT 98
[2024-03-25] MEDS: cefdinir 300 MG CAPSULE PO (21:49)
--- NOTE | 2024-03-27 09:00 | DCPLANNER ---
referral packet faxed to [facility]
== END 2024-03-25 21:49 | disposition home or self-care (01) ==
PROVIDERS: Physician Assistant; Emergency Provider Physician Assistant; PCP Family Medicine
DX: N13.2 Hydronephrosis with renal and ureteral calculous obstruction (principal); N30.90 Cystitis, unspecified without hematuria
CPT/HCPCS: 74176; 80053; 81001; 83690; 84703; 85025; 87086; 96374; 96375; 99285; J1885; J2405; J7030